=== PATIENT | female | born 1935 | race Caucasian/White ===

== ENCOUNTER → 2017-05-21 | Outpatient (REF) | payer MEDICARE ==
[2017-05-22 12:48] LABS: BASO % 0.3 % (0.0-1.0); EOS # 0.2 K/mm3 (0.0-0.50); EOS % 2.4 % (0.0-3.0); LARGE UNSTAINED CELL # 0.2 K/mm3 (0.0-0.4); LARGE UNSTAINED CELL % 2.3 % (0.0-4.0); LYMPH # 2.5 K/mm3 (1.5-4.5); LYMPH % 27.7 % (24.0-44.0); MEAN CORPUSCULAR HEMOGLOBIN 31.9 pg (27.0-33.0); MEAN CORPUSCULAR HGB CONC 34.7 g/dl (32.0-36.5); MONO # 0.6 K/mm3 (0.0-0.8); MONO % 6.4 % (0.0-5.0); NEUTROPHILS # 5.5 K/mm3 (1.8-7.7); NEUTROPHILS % 60.9 % (36.0-66.0); PLATELET COUNT, AUTOMATED 175 k/mm3 (150-450); RED CELL DISTRIBUTION WIDTH 12.3 % (11.5-14.5); WHITE BLOOD COUNT 9.1 K/mm3 (4.0-10.0)
[2017-05-22 13:22] LABS: ALBUMIN 3.6 GM/DL (3.2-5.2); ALBUMIN/GLOBULIN RATIO 1.33 (1.00-1.93); ALKALINE PHOSPHATASE 95 U/L (45-117); ALT/SGPT 16 U/L (12-78); ANION GAP 7 MEQ/L (8-16); AST/SGOT 18 U/L (15-37); BILIRUBIN,TOTAL 1.1 MG/DL (0.2-1.0); BLOOD UREA NITROGEN 10 MG/DL (7-18); CARBON DIOXIDE LEVEL 31 MEQ/L (21-32); CHLORIDE LEVEL 108 MEQ/L (98-107); CHOLESTEROL LEVEL 144 MG/DL (<200); GLOMERULAR FILTRATION RATE > 60.0 (>39); GLUCOSE, FASTING 90 MG/DL (83-110); POTASSIUM SERUM 4.4 MEQ/L (3.5-5.1); SODIUM LEVEL 146 MEQ/L (136-145); TOTAL PROTEIN 6.3 GM/DL (6.4-8.2); TRIGLYCERIDES LEVEL 87 MG/DL (<150)
== END ==
LOC: M SFHCADAM 16:21
PROVIDERS: ATTEND Physician Assistant Medical
DX: R91.1 Solitary pulmonary nodule (principal); F17.200 Nicotine dependence, unspecified, uncomplicated; J43.1 Panlobular emphysema; E55.9 Vitamin D deficiency, unspecified; I77.9 Disorder of arteries and arterioles, unspecified; Z23 Encounter for immunization; Z79.52 Long term (current) use of systemic steroids; Z79.899 Other long term (current) drug therapy
CPT/HCPCS: 80053; 80061; 82306; 84443; 85025; 90670; G0009; G0463

== ENCOUNTER → 2018-06-15 | Outpatient (REF) | payer MEDICARE ==
[2018-06-15 13:08] LABS: BASO % 0.5 % (0.0-1.0); EOS # 0.1 10^3/uL (0.0-0.50); EOS % 1.8 % (0.0-3.0); HEMATOCRIT 45.5 % (36.0-47.0); HEMOGLOBIN 14.4 g/dl (12.0-15.5); IMMATURE GRANULOCYTE % 0.4 % (0-3.0); LYMPH % 25.7 % (24.0-44.0); MEAN CORPUSCULAR HGB CONC 31.6 g/dl (32.0-36.5); MEAN CORPUSCULAR VOLUME 94.8 fl (80.0-96.0); MONO # 0.8 10^3/uL (0.0-0.8); MONO % 9.8 % (0.0-5.0); NEUTROPHILS # 4.8 10^3/uL (1.8-7.7); NEUTROPHILS % 61.8 % (36.0-66.0); PLATELET COUNT, AUTOMATED 171 10^3/uL (150-450); RED CELL DISTRIBUTION WIDTH 12.6 % (11.5-14.5); WHITE BLOOD COUNT 7.8 10^3/uL (4.0-10.0)
[2018-06-15 13:45] LABS: THYROID STIMULATING HORMONE 0.955 uIU/ML (0.358-3.740)
[2018-06-15 14:32] LABS: ALBUMIN/GLOBULIN RATIO 1.33 (1.00-1.93); ALKALINE PHOSPHATASE 105 U/L (45-117); ALT/SGPT 21 U/L (12-78); ANION GAP 6 MEQ/L (8-16); AST/SGOT 23 U/L (7-37); BILIRUBIN,TOTAL 1.2 MG/DL (0.2-1.0); BLOOD UREA NITROGEN 13 MG/DL (7-18); CALCIUM LEVEL 9.2 MG/DL (8.8-10.2); CARBON DIOXIDE LEVEL 31 MEQ/L (21-32); CHLORIDE LEVEL 107 MEQ/L (98-107); CHOLESTEROL LEVEL 156 MG/DL (<200); CHOLESTEROL RISK RATIO 1.925 (<5); CREATININE FOR GFR 0.78 MG/DL (0.55-1.30); FREE T4 1.25 NG/DL (0.76-1.46); GLOMERULAR FILTRATION RATE > 60.0 (>32); GLUCOSE, FASTING 103 MG/DL (70-100); HDL CHOLESTEROL 81 MG/DL (>40); LDL CHOLESTEROL 52 MG/DL (<100); NON-HDL-C 75 MG/DL; POTASSIUM SERUM 4.4 MEQ/L (3.5-5.1); SODIUM LEVEL 144 MEQ/L (136-145); TRIGLYCERIDES LEVEL 114 MG/DL (<150)
[2018-06-15 19:24] LABS: TOTAL 25(OH) VITAMIN D 34.7 NG/ML (30.0-100.0)
== END ==
LOC: M SFHCADAM 10:13
DX: I73.9 Peripheral vascular disease, unspecified (principal); J43.1 Panlobular emphysema; I77.9 Disorder of arteries and arterioles, unspecified; E55.9 Vitamin D deficiency, unspecified; R91.1 Solitary pulmonary nodule; F17.200 Nicotine dependence, unspecified, uncomplicated; Z23 Encounter for immunization
CPT/HCPCS: 84443

== ENCOUNTER → 2019-01-25 | Outpatient (REF) | payer MEDICARE ==
[2019-01-25 19:43] LABS: THYROID STIMULATING HORMONE 1.12 uIU/ML (0.358-3.740)
[2019-01-25 19:46] LABS: FOLATE 3.9 NG/ML
[2019-01-31 00:06] LABS: VITAMIN B1 LEVEL WHOLE BLOOD 143.5 nmol/L (66.5-200.0); VITAMIN B6,PYRIDOXAL PHOSPHATE 2.5 ug/L (2.0-32.8); VITAMIN E(ALPHA TOCOPHEROL) 7.6 mg/L (9.0-29.0); VITAMIN E(GAMMA TOCOPHEROL) 2.2 mg/L (0.5-4.9)
== END ==
LOC: M LABNEURO 13:37
PROVIDERS: ATTEND Psychiatry & Neurology Neurology
DX: E03.9 Hypothyroidism, unspecified (principal); E53.9 Vitamin B deficiency, unspecified

== ENCOUNTER → 2019-06-14 | Outpatient (REF) | payer MEDICARE ==
[2019-06-14 16:08] LABS: BASO % 0.6 % (0.0-1.0); EOS # 0.1 10^3/uL (0.0-0.5); EOS % 1.8 % (0.0-3.0); HEMATOCRIT 42.9 % (36.0-47.0); HEMOGLOBIN 13.7 g/dl (12.0-15.5); LYMPH # 2.1 10^3/uL (1.5-5.0); MEAN CORPUSCULAR HEMOGLOBIN 30.8 pg (27.0-33.0); MEAN CORPUSCULAR HGB CONC 31.9 g/dl (32.0-36.5); MEAN CORPUSCULAR VOLUME 96.4 fl (80.0-96.0); MONO # 0.6 10^3/uL (0.0-0.8); MONO % 8.8 % (0.0-5.0); NEUTROPHILS # 4.1 10^3/uL (1.5-8.5); NEUTROPHILS % 58.5 % (36.0-66.0); PLATELET COUNT, AUTOMATED 163 10^3/uL (150-450); RED BLOOD COUNT 4.45 10^6/uL (4.00-5.40); WHITE BLOOD COUNT 7.1 10^3/uL (4.0-10.0)
[2019-06-14 16:23] LABS: ALBUMIN 3.5 GM/DL (3.2-5.2); ALT/SGPT 23 U/L (12-78); BLOOD UREA NITROGEN 10 MG/DL (7-18); CALCIUM LEVEL 8.7 MG/DL (8.8-10.2); CARBON DIOXIDE LEVEL 33 MEQ/L (21-32); CHLORIDE LEVEL 104 MEQ/L (98-107); CHOLESTEROL LEVEL 148 MG/DL (<200); CHOLESTEROL RISK RATIO 1.947 (<5); FOLATE 8.1 NG/ML; GLOMERULAR FILTRATION RATE > 60.0 (>32); GLUCOSE, FASTING 117 MG/DL (70-100); HDL CHOLESTEROL 76 MG/DL (>40); LDL CHOLESTEROL 48 MG/DL (<100); NON-HDL-C 72 MG/DL; POTASSIUM SERUM 4.1 MEQ/L (3.5-5.1); SODIUM LEVEL 141 MEQ/L (136-145); TOTAL 25(OH) VITAMIN D 34.6 NG/ML (30.0-100.0); TOTAL PROTEIN 6.3 GM/DL (6.4-8.2); TRIGLYCERIDES LEVEL 118 MG/DL (<150); VITAMIN B12 LEVEL 557 PG/ML
[2019-06-14 16:27] LABS: HEMOGLOBIN A1c 6.1 %
[2019-06-14 16:32] LABS: CREATININE, URINE 89.1 MG/DL; MALB URINE SIEMENS 10.8 MG/L; MAU/CREAT RATIO 12.1 MCG/MG (0.0-30.0)
== END ==
LOC: M SFHCADAM 13:15
PROVIDERS: ATTEND Physician Assistant Medical
DX: I77.9 Disorder of arteries and arterioles, unspecified (principal); E55.9 Vitamin D deficiency, unspecified; I70.233 Atherosclerosis of native arteries of right leg with ulceration of ankle; I10 Essential (primary) hypertension; F03.90 Unspecified dementia, unspecified severity, without behavioral disturbance, psychotic disturbance, mood disturbance, and anxiety
CPT/HCPCS: 80053; 80061; 82043; 82306; 82607; 82746; 83036; 84443; 85025; 90682; G0008; G0463

== ENCOUNTER → 2020-06-11 | Outpatient (REF) | payer MEDICARE ==
[2020-06-11 12:50] LABS: BASO % 0.5 % (0.0-1.0); EOS # 0.2 10^3/uL (0.0-0.5); EOS % 2.2 % (0.0-3.0); HEMATOCRIT 45.5 % (36.0-47.0); HEMOGLOBIN 14.1 g/dl (12.0-15.5); LYMPH # 1.9 10^3/uL (1.5-5.0); LYMPH % 26.5 % (24.0-44.0); MEAN CORPUSCULAR HEMOGLOBIN 29.7 pg (27.0-33.0); MEAN CORPUSCULAR VOLUME 95.8 fl (80.0-96.0); MONO # 0.9 10^3/uL (0.0-0.8); MONO % 12.1 % (0.0-5.0); NEUTROPHILS # 4.3 10^3/uL (1.5-8.5); NEUTROPHILS % 58.4 % (36.0-66.0); PLATELET COUNT, AUTOMATED 219 10^3/uL (150-450); RED BLOOD COUNT 4.75 10^6/uL (4.00-5.40); WHITE BLOOD COUNT 7.3 10^3/uL (4.0-10.0)
[2020-06-11 13:25] LABS: ALBUMIN 3.5 GM/DL (3.2-5.2); ALT/SGPT 16 U/L (12-78); BILIRUBIN,TOTAL 0.9 MG/DL (0.2-1.0); BLOOD UREA NITROGEN 9 MG/DL (7-18); CALCIUM LEVEL 9.3 MG/DL (8.8-10.2); CARBON DIOXIDE LEVEL 31 MEQ/L (21-32); CHLORIDE LEVEL 104 MEQ/L (98-107); CHOLESTEROL LEVEL 151 MG/DL (<200); CHOLESTEROL RISK RATIO 1.935 (<5); GLOMERULAR FILTRATION RATE > 60.0 (>32); GLUCOSE, FASTING 85 MG/DL (70-100); HDL CHOLESTEROL 78 MG/DL (>40); LDL CHOLESTEROL 54 MG/DL (<100); NON-HDL-C 73 MG/DL; POTASSIUM SERUM 4.2 MEQ/L (3.5-5.1); SODIUM LEVEL 139 MEQ/L (136-145); TRIGLYCERIDES LEVEL 97 MG/DL (<150)
== END ==
LOC: M SFHCADAM 09:43
PROVIDERS: ATTEND Physician Assistant Medical
DX: R91.1 Solitary pulmonary nodule (principal); I77.9 Disorder of arteries and arterioles, unspecified; E55.9 Vitamin D deficiency, unspecified; I70.233 Atherosclerosis of native arteries of right leg with ulceration of ankle

== ENCOUNTER 2021-01-06 20:07 | Inpatient (IN) | payer MEDICARE ==
[~2021-01-06] VITALS: Ht 165.1 cm; Wt 59.1 kg
[2021-01-06] MEDS ORDERED: ATOR40TA75 PO (20:19)
[2021-01-06] MEDS ORDERED: DONE10TA90 PO (20:19)
[2021-01-06] MEDS ORDERED: ASPI81TA26 PO (20:21)
[2021-01-06 21:52] LABS: BASO % 0.4 % (0.0-1.0); EOS # 0.2 10^3/uL (0.0-0.5); EOS % 1.5 % (0.0-3.0); HEMATOCRIT 44.9 % (36.0-47.0); HEMOGLOBIN 14.3 g/dl (12.0-15.5); LYMPH % 19.5 % (24.0-44.0); MEAN CORPUSCULAR HEMOGLOBIN 30.6 pg (27.0-33.0); MEAN CORPUSCULAR HGB CONC 31.8 g/dl (32.0-36.5); MEAN CORPUSCULAR VOLUME 96.1 fl (80.0-96.0); MONO # 0.9 10^3/uL (0.0-0.8); MONO % 8.9 % (2.0-8.0); NEUTROPHILS # 7.2 10^3/uL (1.5-8.5); NEUTROPHILS % 69.4 % (36.0-66.0); PLATELET COUNT, AUTOMATED 199 10^3/uL (150-450); RED BLOOD COUNT 4.67 10^6/uL (4.00-5.40); WHITE BLOOD COUNT 10.4 10^3/uL (4.0-10.0)
[2021-01-06 22:16] LABS: BLOOD UREA NITROGEN 9 MG/DL (7-18); CALCIUM LEVEL 8.8 MG/DL (8.8-10.2); CARBON DIOXIDE LEVEL 29 MEQ/L (21-32); CHLORIDE LEVEL 107 MEQ/L (98-107); CREATININE FOR GFR 0.74 MG/DL (0.55-1.30); GLOMERULAR FILTRATION RATE > 60.0 (>32); GLUCOSE, FASTING 103 MG/DL (70-100); SODIUM LEVEL 141 MEQ/L (136-145)
[2021-01-06] MEDS ORDERED: ISOVUE-370 76% 100ML VIAL As Ordered ONE (22:22)
--- NOTE | 2021-01-06 22:30 | REPVR ---
PROCEDURE INFORMATION: Exam: XR Chest Exam date and time: 01/06/2021 9:47 PM Age: 85 years old Clinical indication: Screening exam; Additional info: Pre-admission TECHNIQUE: Imaging protocol: XR of the chest. Views: 1 view. COMPARISON: CT Chest without contrast 07/22/2016 2:00 PM FINDINGS: Tubes, catheters and devices: There are surgical clips projecting over the right axillary region. Lungs: There is chronic scarring of the lung apices, right greater than left, which was also present in the CT chest on 07/22/2016. There are emphysematous changes in both lungs, which are better visualized in the CT chest on 07/22/2016. Pleural spaces: Unremarkable. No pleural effusion. No pneumothorax. Heart/Mediastinum: Unremarkable. No cardiomegaly. Bones/joints: There are endplate spurs in the thoracic spine. There is a mild dextroscoliosis of the thoracolumbar spine. IMPRESSION: 1. No radiographic evidence for an acute cardiopulmonary process. 2. Emphysematous changes. Electronically signed by: Gurwinder Wise On 01/06/2021 22:29:55 PM
--- NOTE | 2021-01-06 23:44 | REPVR ---
PROCEDURE INFORMATION: Exam: CT Abdomen And Pelvis With Contrast Exam date and time: 01/06/2021 10:37 PM Age: 85 years old Clinical indication: Lower gastrointestinal bleed. TECHNIQUE: Imaging protocol: Computed tomography of the abdomen and pelvis with contrast. Radiation optimization: All CT scans at this facility use at least one of these dose optimization techniques: automated exposure control; mA and/or kV adjustment per patient size (includes targeted exams where dose is matched to clinical indication); or iterative reconstruction. Contrast material: ISOVUE 370; Contrast volume: 100 ml; Contrast route: INTRAVENOUS (IV); COMPARISON: CT Chest without contrast 07/22/2016 2:00:46 PM FINDINGS: Lungs: There are centrilobular emphysematous changes in the lung bases. The lungs were not fully imaged. Heart: No cardiomegaly or pericardial effusion is noted. There are coronary artery calcifications. Liver: There are hepatic cysts measuring up to 10 mm, which are stable compared to the prior CT chest on 07/22/2016 and for which further follow-up is not necessary. The contour of the liver is smooth. No hepatomegaly. Gallbladder and bile ducts: There is cholelithiasis. There is thickening of the wall of the fundus and proximal to mid body of the gallbladder. No pericholecystic fluid or pericholecystic inflammatory changes are noted. The common bile duct measures up to 8 mm in diameter. No calcified stones are seen in the common bile duct. No dilation of the intrahepatic biliary ducts is noted. Pancreas: Unremarkable. No dilation of the main pancreatic duct is noted. Spleen: Normal. No splenomegaly is noted. Adrenal glands: There is nodular thickening of the adrenal glands that is stable compared to the prior CT chest on 07/22/2016. Kidneys and ureters: The kidneys are normal in appearance. No renal lesion is noted. No stones are noted in the kidneys or ureters. There is no hydronephrosis or hydroureter. Stomach and bowel: There is thickening of the wall of the stomach, which may be secondary to its decompressed state versus gastritis. The small bowel is unremarkable. There is high attenuation fluid in the lumen of the cecum descending colon, sigmoid colon, and rectum, which may represent acute hemorrhage or ingested material. There is thickening of the wall of the ascending colon and transverse colon, which is compatible with a colitis. There is colonic diverticulosis without evidence for diverticulitis. There is lipomatosis of the ileocecal valve. Appendix: There is intraluminal high density within the appendix, which may represent high density ingested material or appendicoliths. The appendix is not dilated and there is no inflammatory fat stranding or fluid around the appendix to indicate appendicitis. Intraperitoneal space: No free air. No ascites. No abscess. Retroperitoneal space: No fluid collection. No mass. Vasculature: There is a bypass graft extending along the right lateral aspect of the chest wall and abdominal and pelvic wall into the right common femoral artery, which may represent a right axillofemoral bypass graft that was not fully imaged. The imaged portion of the graft is patent. There is dilation of the distal portion of the graft at the level of the pelvis, which measures 2.6 cm in diameter with mural thrombus. There is an occluded right common iliac artery and right external iliac artery bypass graft. There is severe stenosis of the [place] right common iliac artery secondary to extensive calcified atherosclerotic plaque. There is an occlusion of the left common iliac artery secondary to extensive calcified atherosclerotic plaque. There is moderate stenosis of the left external iliac artery secondary to calcified atherosclerotic plaque. There is severe stenosis of the bilateral internal iliac arteries secondary to extensive calcified atherosclerotic plaque. There is mild stenosis of the left common femoral artery secondary to calcified atherosclerotic plaque. No abdominal aortic aneurysm or aortic occlusion is noted. There is extensive atherosclerotic plaque in the abdominal aorta. There is an occlusion of the proximal portion of the inferior mesenteric artery, with reconstitution of flow distally via a collateral branch of the superior mesenteric artery. No occlusion or stenosis of the celiac artery or superior mesenteric artery is noted. There is severe stenosis of the origin of the single left main renal artery. No significant stenosis or occlusion the single right main renal artery is noted. Lymph nodes: There is a 3 cm right hilar mass or lymphadenopathy that has developed since the prior CT chest on 07/22/2016 (image 1 of the axial series 201). No enlarged lymph nodes. Urinary bladder: The partially distended urinary bladder is unremarkable. No stones or masses are seen in the bladder. Reproductive: The uterus is anterverted and unremarkable. The ovaries are unremarkable. Bones/joints: There is no fracture or dislocation. There are degenerative changes in the lumbar spine and a mild dextroscoliosis of the lumbar spine. Incidental note is made of a small bone island in the right iliac bone. Soft tissues: Unremarkable. No hernia. IMPRESSION: 1. 3 cm right hilar mass or lymphadenopathy, which has developed since the prior CT chest on 07/22/2016. 2. High attenuation fluid in the lumen of the cecum, descending colon, sigmoid colon, and rectum, which may represent acute hemorrhage or ingested material. 3. Colitis involving the ascending colon and transverse colon. 4. Colonic diverticulosis without evidence for diverticulitis. 5. Thickening of the wall of the stomach, which may be secondary to its decompressed state versus gastritis. 6. Cholelithiasis. 7. 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 Electronically signed by: Gurwinder Wise On 01/06/2021 23:43:58 PM
--- NOTE | 2021-01-07 00:02 | HPEPDOC ---
[facility] Medical History & Physical Date of Admission January 06, 2021 Date of Service: January 06, 2021 History and Physical CHIEF COMPLAINT: Diarrhea with blood in stool HISTORY OF PRESENT ILLNESS: 85-year-old female comes emergency department with her at bedside complaining of diarrhea with some blood which started only today. Tells me she's had diarrhea about 5 or 6 times today and she has noticed a few times she sees blood when she wipes and sometimes in the bowl she describes as a small amount a few drops but she has not had this amount of diarrhea or blood in her stools before. This concerned her and prompted her to come to the emergency department. does not have diarrhea symptoms. She denies any fevers or chills denies any chest pain or trouble breathing denies abdominal pain. She tells me the diar maranda has slowed down and when she hasn't gone in the past several hours. She doesn't feel any lightheadedness or dizziness. PAST MEDICAL/SURGICAL HISTORY: Peripheral artery disease, complete occlusion of the right internal carotid Pulmonary nodule following up with her PCP for this. History of squamous cell carcinoma of left face Mild dementia according to her Varicose vein stripping 1970 Tubal ligation 1970 Skin cancer removal from face with skin graft 1989 Cataract surgery Right axillofemoral bypass 2016 SOCIAL HISTORY: Denies alcohol use Denies tobacco use currently but she is a former smoker enies illicit drug use FAMILY HISTORY: Reviewed and none contributory to this admission ALLERGIES: Please see below. REVIEW OF SYSTEMS: 10 point review of systems complete all negative otherwise stated in HPI HOME MEDICATIONS: Please see below. PHYSICAL EXAMINATION: Constitutional: Awake and alert, in no apparent distress ENT: Sclera are clear. Mucosa is moist. Respiratory: Lungs CTA bilaterally. No respiratory distress. Cardiovascular: Regular rate and rhythm Gastrointestinal: Abdomen is soft, non distended, non tender to light or deep palpation no rebound tenderness, BS present. Musculoskeletal: No lower extremity edema. Neurologic: No focal neurological deficit. Mental Status: A&O x3, normal affect Skin: No visible rashes LABORATORY DATA: See below. IMAGING: See chart MICROBIOLOGY: Please see below. ASSESSMENT/PLAN 85-year-old female presents with a one-day history of diarrhea and bright red blood per rectum. Etiology unknown at this time but patient will be admitted for further workup and management. # Diarrhea associated with BRBPR: unkown etiology, possibly colitis vs gastroenteritis. Fu GI panel. Trend HH. Hgb 14 on admit. IV protonix. IV ciprofloxacin for now. Consider Inpatient vs outpatient colonoscopy/GI eval. IVF. # Elevated blood pressure without diagnosis of hypertension: SBP 180 on admit. Started on lisinopril. Monitor and titrate BP. # Lung nodule: Follow up on CT chest ordered from ED not yet read. She's been following up with her PCP for this. # PAD: continue home ASA/statin. ASA given how high her hgb is and how small her lower GI bleeding is, should HH downtrend ASA can be held. # Dementia: continue dozepezil # DVT prophylaxis: SCDs/TEDs only due to GI bleed A [facility] Hospitalist Vital Signs Vital Signs Date Time Temp Pulse Resp B/P (MAP) Pulse Ox O2 Delivery O2 Flow Rate FiO2 01/06/21 21:20 01/06/21 20:08 98.2 100 20 100 Room Air Laboratory Data Labs 24H Laboratory Tests 2 01/06/21 21:42: Immature Granulocyte % (Auto) 0.3, Neutrophils (%) (Auto) 69.4H, Lymphocytes (%) (Auto) 19.5L, Monocytes (%) (Auto) 8.9H, Eosinophils (%) (Auto) 1.5, Basophils (%) (Auto) 0.4, Neutrophils # (Auto) 7.2, Lymphocytes # (Auto) 2.0, Monocytes # (Auto) 0.9H, Eosinophils # (Auto) 0.2, Basophils # (Auto) 0.0, Nucleated Red Blood Cells % (auto) 0.0, Anion Gap 5L, Glomerular Filtration Rate > 60.0, Calci um Level 8.8 CBC/BMP Laboratory Tests 01/06/21 21:42 Home Medications Scheduled Aspirin (Aspirin EC) 81 Mg Tablet.dr, 81 MG PO DAILY Atorvastatin Calcium (Atorvastatin Calcium) 40 Mg Tablet, 40 MG PO DAILY Donepezil HCl (Donepezil HCl) 10 Mg Tablet, 10 MG PO DAILY Allergies Coded Allergies: bacitracin (Verified Allergy, Unknown, 01/06/21) neomycin (Verified Allergy, Unknown, 01/06/21) polymyxin B (Verified Allergy, Unknown, 01/06/21) A-FIB/CHADSVASC A-FIB History Current/History of A-Fib/PAF?: No YOUSEF,UZIEL Estrada MD January 07, 2021 00:02
[2021-01-07] MEDS ORDERED: NS 1,000 ML IV SCH (00:10)
[2021-01-07] MEDS ORDERED: ACETAMINOPHEN TAB 650MG DOSE (2X325MG) PO PRN (00:50)
[2021-01-07 00:56] LABS: RSV AMPLIFICATION NEGATIVE (NEGATIVE)
--- NOTE | 2021-01-07 01:14 | REPVR ---
PROCEDURE INFORMATION: Exam: CT Chest Without Contrast; Diagnostic Exam date and time: 01/07/2021 12:18 AM Age: 85 years old Clinical indication: Abnormal findings; Lung mass or nodule; Not specified; Additional info: New right hilar mass TECHNIQUE: Imaging protocol: Diagnostic computed tomography of the chest without contrast. 3D rendering (Not supervised by radiologist): MIP and/or 3D reconstructed images were created by the technologist. Radiation optimization: All CT scans at this facility use at least one of these dose optimization techniques: automated exposure control; mA and/or kV adjustment per patient size (includes targeted exams where dose is matched to clinical indication); or iterative reconstruction. COMPARISON: CT Chest without contrast 07/22/2016 2:00 PM FINDINGS: Lungs: Spiculated mass in the right upper lobe measuring 3.4 x 2.0 x 4.1 cm. Advanced emphysema and hyperinflation. No other masses are seen. No airspace consolidation. There is nonobstructive stenosis of the bronchus intermedius. Airways are otherwise clear. Pleural spaces: Unremarkable. No pneumothorax. No pleural effusion. Heart: Normal heart size. Three-vessel coronary artery atherosclerotic disease. Aorta: Unremarkable. No aortic aneurysm. Lymph nodes: Multiple enlarged right hilar lymph nodes measuring up to 1.9 cm. Additional smaller mediastinal lymph nodes measuring up to 1.4 cm. Bones/joints: Skeletal degenerative changes are noted. Soft tissues: There is a vascular stent in the right chest wall. IMPRESSION: 1. Large spiculated right upper lobe mass with mediastinal and hilar adenopathy. 2. Advanced emphysema. 3. Nonobstructive stenosis of the bronchus intermedius. 4. Coronary artery disease. Electronically signed by: Finn Flowers On 01/07/2021 01:14:10 AM
[2021-01-07 01:47] VITALS: BP 128/75
[2021-01-07] MEDS: NS 1,000 ML IV SCH ×2 (02:10→13:45)
[2021-01-07] MEDS: DONEPEZIL 5 MG TAB PO SCH ×2 (02:10→20:03)
[2021-01-07] MEDS: CIPROFLOXACIN 400 MG in IV 1 EA IV SCH ×2 (02:11→13:48)
[2021-01-07] MEDS: PANTOPRAZOLE 40MG VIAL (C9113 PER 1) IV SCH (02:11)
[2021-01-07 06:00] VITALS: BP 121/72
[2021-01-07 06:40] LABS: HEMATOCRIT 38.2 % (36.0-47.0); HEMOGLOBIN 12.1 g/dl (12.0-15.5); MEAN CORPUSCULAR HEMOGLOBIN 30.9 pg (27.0-33.0); MEAN CORPUSCULAR HGB CONC 31.7 g/dl (32.0-36.5); MEAN CORPUSCULAR VOLUME 97.4 fl (80.0-96.0); PLATELET COUNT, AUTOMATED 164 10^3/uL (150-450); RED BLOOD COUNT 3.92 10^6/uL (4.00-5.40); WHITE BLOOD COUNT 7.4 10^3/uL (4.0-10.0)
[2021-01-07 07:02] LABS: ALBUMIN 2.7 GM/DL (3.2-5.2); ALT/SGPT 10 U/L (12-78); BILIRUBIN,TOTAL 0.9 MG/DL (0.2-1.0); BLOOD UREA NITROGEN 8 MG/DL (7-18); CALCIUM LEVEL 8.3 MG/DL (8.8-10.2); CARBON DIOXIDE LEVEL 28 MEQ/L (21-32); CHLORIDE LEVEL 109 MEQ/L (98-107); CREATININE FOR GFR 0.56 MG/DL (0.55-1.30); GLOMERULAR FILTRATION RATE > 60.0 (>32); GLUCOSE, FASTING 92 MG/DL (70-100); SODIUM LEVEL 142 MEQ/L (136-145); TOTAL PROTEIN 5.4 GM/DL (6.4-8.2)
[2021-01-07] MEDS ORDERED: ASPIRIN 81MG ENTERIC TABLET PO SCH (09:00)
[2021-01-07] MEDS: ATORVASTATIN 20 MG TAB PO SCH (10:17)
[2021-01-07 12:34] LABS: HEMATOCRIT 41.5 % (36.0-47.0); HEMOGLOBIN 13.2 g/dl (12.0-15.5)
[2021-01-07 14:00] VITALS: BP 126/43
--- NOTE | 2021-01-07 16:49 | IPNPDOC ---
Text Note Date of Service The patient was seen on 01/07/21. NOTE S Per patient, she continued to have some episodes of passing bloody stool o vernight after admission. However, she was unable to recall how many episodes she has had overnight but reported seeing stool switch back and forth in color between dark and bright red. Patient reported that she has never had colonoscopy before and has been refusing to have the procedure done. Her Hgb dropped from 14.3 to 12.1 overnight. She remained asymptomatic and denied fever, chills, CP, SOB, N/V, hematemesis, abd pain, dizziness, hematuria and other urinary symptoms. O VITAL SIGNS: See below GENERAL APPEARANCE: Revealed 85 y/o F laying supine with HOB slightly elevated, appeared as stated age, alert & oriented x3, in no acute distress. HEENT Exam: Normocephalic and atraumatic, PERRL, pale conjunctiva & lids, without sclera icteric, mucous membr. moist/pink, pharynx normal, nares patent. NECK: Supple without lymphadenopathy. R sided carotid bruit noted. LUNGS: Clear to auscultation bilaterally with full breath sounds without rales, wheezing, and crackles. Healed scar noted on R chest. CARDIOVASCULAR: Regular rate and rhythm, normal S1 & S2 with 3/6 systolic murmur best heard at L 2nd ICS without gallops or rubs ABDOMEN: Soft, non-tender, non-distended with normal bowel sounds. No masses or ecchymosis or hepatosplenomegaly. R axillofemoral bypass graft noted on abd. EXTREMITIES: 2+ pulses in all extremities. No edema, tenderness SKIN: Normal turgor and temperature. No rash, lesion NEUROLOGICAL: Normal gait speech with no signs of gross focal neurological deficit. PSYCHIATRIC: Normal mood and affect ASSESSMENT/PLAN Patient is a 85-year-old female with hx of HFpEF (last normal echo 07/2017 per PCP records with unclear LVEF, LVEF 65% with grade 1 diastolic dysfunction on 07/05/2014), PAD with complete occlusion of R internal carotid (s/p R axillofemoral bypass graft in 2016), pulmonary nodule (first found on CT chest 06/19/2014 with patient refusal of repeat surveillance CT for the past 3 years), SCC of L face (s/p excision and skin graft in 1989) and mild dementia, presenting to the ED on 01/06 evening c/o 5-6 episodes of bloody diarrhea that started during the day. CT abd/pelvis on 01/06 suggestive of colitis involving ascending and transverse colon with collection of high attenuation fluid in lumen of cecum, descending and sigmoid colon and rectum suggestive of acute hemorrhage. Patient was subsequently admitted for further workup and management of bloody diarrhea. Her Hgb dropped from 14.3 to 12.1 overnight. However, patient remained asymptomatic and afebrile. GI panel returned negative. Will hold ASA and continue treatment with ciprofloxacin. Patient's pulmonary mass which was found in 2013 was again demonstrated on imaging in this visit. # Diarrhea associated with BRBPR - Likely 2/2 colitis - CT abd/pelvis showed colitis involving the ascending colon and transverse colon, and high attenuation fluid in the lumen of the cecum, descending colon, sigmoid colon, and rectum, which may represent acute hemorrhage. - GI panel negative. - Hgb dropped from 14.3 to 12.1 overnight. Hold home ASA - Inpatient colonoscopy not indicated at this time due to acute inflammation, will need outpatient colonoscopy - Cont cipro and protonix. # Elevated blood pressure without diagnosis of hypertension, resolved - SBP 180 on admit. - Resolved spontaneously after admission - Cont to monitor # Lung mass - Pulmonary mass was found on CT chest on 06/19/2014 - Repeat CT in 07/2015 showed 1mm change in size of nodule - Repeat CT in 07/2016 suggested nodule appeared more fibrotic - Patient has been refusing surveillance chest CT for the past few years - Pulmonary nodule demonstrated again on chest CT during this admission, showing large spiculated right upper lobe mass measuring 3.4 x 2.0 x 4.1 cm with mediastinal and hilar adenopathy. - Concerning for malignancy given size and spiculated appearance, will need outpatient follow up # PAD - continue statin. ASA held due to dropping Hgb. # Dementia - continue dozepezil # DVT prophylaxis - Cont SCDs/TEDs only due to GI bleed Disposition: Consider discharge when hemodynamically stable VS,Eulaliobone, I+O VS, Eulaliobone, I+O Laboratory Tests 01/06/21 21:42 01/07/21 06:04 01/07/21 11:59 Vital Signs Date Time Temp Pulse Resp B/P (MAP) Pulse Ox O2 Delivery O2 Flow Rate FiO2 01/07/21 14:00 98.0 86 19 126/43 (70) 95 Room Air I&O- Last 24 Hours up to 6 AM 01/07/21 06:00 Intake Total 490 ml Balance 490 ml GME ATTESTATION GME ATTESTATION My faculty preceptor for this patient encounter was physically present during the encounter and was fully available. All aspects of the patient interview, examination, medical decision making process, and medical care plan development were reviewed and approved by the faculty preceptor. The faculty preceptor is aware and concurs with the plan as stated in the body of this note and will attest to such by his/her cosignature. VANDANA SIDHU OMS-3 January 07, 2021 16:49
[2021-01-07 18:21] LABS: HEMOGLOBIN 11.5 g/dl (12.0-15.5)
--- NOTE | 2021-01-07 20:05 | ECGEPIP ---
[facility] - ED Test Date: 2021-01-06 Pat Name: KRIS SCHMIDT Department: Room: [place] [address] Gender: Female [employer] Supervisor: WAYNE : 1935 Requested By: Elkin Woodruff Order Number: [id number] Reading MD: Jeannette Dee Measurements Intervals Hardy Rate: 87 P: 77 MD: 158 QRS: 114 QRSD: 126 T: 22 QT: 372 QTc: 447 Interpretive Statements Sinus rhythm with premature atrial complexes with aberrant conduction Right bundle branch block No prior Electronically Signed on 01-07-2021 20:05:22 EDT by Jeannette Dee
[2021-01-07 22:00] VITALS: BP 124/43
[2021-01-08 00:09] LABS: HEMATOCRIT 36.9 % (36.0-47.0); HEMOGLOBIN 11.6 g/dl (12.0-15.5)
[2021-01-08] MEDS: PANTOPRAZOLE 40MG VIAL (C9113 PER 1) IV SCH (02:19)
[2021-01-08] MEDS: CIPROFLOXACIN 400 MG in IV 1 EA IV SCH (02:19)
[2021-01-08 06:00] VITALS: BP 120/61
[2021-01-08 06:34] LABS: HEMATOCRIT 37.7 % (36.0-47.0); HEMOGLOBIN 11.8 g/dl (12.0-15.5); MEAN CORPUSCULAR HEMOGLOBIN 30.4 pg (27.0-33.0); MEAN CORPUSCULAR HGB CONC 31.3 g/dl (32.0-36.5); MEAN CORPUSCULAR VOLUME 97.2 fl (80.0-96.0); PLATELET COUNT, AUTOMATED 163 10^3/uL (150-450); RED BLOOD COUNT 3.88 10^6/uL (4.00-5.40); WHITE BLOOD COUNT 6.8 10^3/uL (4.0-10.0)
[2021-01-08 07:07] LABS: ALBUMIN 2.9 GM/DL (3.2-5.2); ALT/SGPT 12 U/L (12-78); BILIRUBIN,TOTAL 0.9 MG/DL (0.2-1.0); BLOOD UREA NITROGEN 6 MG/DL (7-18); CALCIUM LEVEL 8.5 MG/DL (8.8-10.2); CARBON DIOXIDE LEVEL 27 MEQ/L (21-32); CHLORIDE LEVEL 110 MEQ/L (98-107); CREATININE FOR GFR 0.54 MG/DL (0.55-1.30); GLOMERULAR FILTRATION RATE > 60.0 (>32); GLUCOSE, FASTING 96 MG/DL (70-100); POTASSIUM SERUM 3.7 MEQ/L (3.5-5.1); SODIUM LEVEL 143 MEQ/L (136-145); TOTAL PROTEIN 5.4 GM/DL (6.4-8.2)
[2021-01-08] MEDS: ATORVASTATIN 20 MG TAB PO SCH (09:26)
[2021-01-08] MEDS ORDERED: OMEP40CA97 PO (12:54)
[2021-01-08 14:00] VITALS: BP 147/60
--- NOTE | 2021-01-08 18:47 | DS.PDOC ---
Discharge Summary General Date of Admission January 07, 2021 at 00:00 Date of Discharge 01/08/21 Discharge Summary PROCEDURES PERFORMED DURING STAY: [None]. ADMITTING DIAGNOSES: Diarrhea associated with BRBPR Elevated blood pressure without diagnosis of hypertension, resolved Lung mass PAD Dementia DISCHARGE DIAGNOSES: Diarrhea associated with BRBPR Elevated blood pressure without diagnosis of hypertension, resolved Lung mass PAD Dementia COMPLICATIONS/CHIEF COMPLAINT: Colitis,Hilar Mass, Lgi Bleed. 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 CT abd/pelvis on 01/06 suggestive of colitis involving ascending and transverse colon with collection of high attenuation fluid in lumen of cecum, descending and sigmoid colon and rectum suggestive of acute hemorrhage. Patient was subsequently admitted for further workup and management of bloody diarrhea. Her Hgb dropped from 14.3 to 12.1 overnight. However, patient remained asymptomatic and afebrile. GI panel returned negative. Will hold ASA and continue treatment with ciprofloxacin. Patient's pulmonary mass which was found in 2013 was again demonstrated on imaging in this visit. HOSPITAL COURSE: During the hospital stay following issues addressed # Diarrhea associated with BRBPR - Likely 2/2 colitis - CT abd/pelvis showed colitis involving the ascending colon and transverse colon, and high attenuation fluid in the lumen of the cecum, descending colon, sigmoid colon, and rectum, which may represent acute hemorrhage. - GI panel negative. - Hgb stable -Follow-up with GI team in the outpatient settings Resolved today # Elevated blood pressure without diagnosis of hypertension, resolved - SBP 180 on admit. - Resolved spontaneously after admission - Cont to monitor # Lung mass - Pulmonary mass was found on CT chest on 06/19/2014 - Repeat CT in 07/2015 showed 1mm change in size of nodule - Repeat CT in 07/2016 suggested nodule appeared more fibrotic - Patient has been refusing surveillance chest CT for the past few years - Pulmonary nodule demonstrated again on chest CT during this admission, showing large spiculated right upper lobe mass measuring 3.4 x 2.0 x 4.1 cm with mediastinal and hilar adenopathy. - Concerning for malignancy given size and spiculated appearance, will need outpatient follow up with PCP DISCHARGE MEDICATIONS: Please see below. ALLERGIES: Please see below. PHYSICAL EXAMINATION ON DISCHARGE: GENERAL APPEARANCE: NAD HEENT: no scleral icterus, no JVD, EOMI CARDIOVASCULAR: S1S2 LUNGS: CTA ABDOMEN: soft & not tender w palpitation MUSCULOSKELETAL: no cyanosis, no swelling INTEGUMENT: no generalized pallor NEUROLOGICAL: cranial nerve function from 2-12 intact intact, follows commands, speech not dysarthric LABORATORY DATA: Please see below. IMAGING: PROCEDURE INFORMATION: Exam: CT Abdomen And Pelvis With Contrast Exam date and time: 01/06/2021 10:37 PM Age: 85 years old Clinical indication: Lower gastrointestinal bleed. TECHNIQUE: Imaging protocol: Computed tomography of the abdomen and pelvis with contrast. Radiation optimization: All CT scans at this facility use at least one of these dose optimization techniques: automated exposure control; mA and/or kV adjustment per patient size (includes targeted exams where dose is matched to clinical indication); or iterative reconstruction. Contrast material: ISOVUE 370; Contrast volume: 100 ml; Contrast route: INTRAVENOUS (IV); COMPARISON: CT Chest without contrast 07/22/2016 2:00:46 PM FINDINGS: Lungs: There are centrilobular emphysematous changes in the lung bases. The lungs were not fully imaged. Heart: No cardiomegaly or pericardial effusion is noted. There are coronary artery calcifications. Liver: There are hepatic cysts measuring up to 10 mm, which are stable compared to the prior CT chest on 07/22/2016 and for which further follow-up is not necessary. The contour of the liver is smooth. No hepatomegaly. Gallbladder and bile ducts: There is cholelithiasis. There is thickening of the wall of the fundus and proximal to mid body of the gallbladder. No pericholecystic fluid or pericholecystic inflammatory changes are noted. The common bile duct measures up to 8 mm in diameter. No calcified stones are seen in the common bile duct. No dilation of the intrahepatic biliary ducts is noted. Pancreas: Unremarkable. No dilation of the main pancreatic duct is noted. Spleen: Normal. No splenomegaly is noted. Adrenal glands: There is nodular thickening of the adrenal glands that is stable compared to the prior CT chest on 07/22/2016. Kidneys and ureters: The kidneys are normal in appearance. No renal lesion is noted. No stones are noted in the kidneys or ureters. There is no hydronephrosis or hydroureter. Stomach and bowel: There is thickening of the wall of the stomach, which may be secondary to its decompressed state versus gastritis. The small bowel is unremarkable. There is high attenuation fluid in the lumen of the cecum descending colon, sigmoid colon, and rectum, which may represent acute hemorrhage or ingested material. There is thickening of the wall of the ascending colon and transverse colon, which is compatible with a colitis. There is colonic diverticulosis without evidence for diverticulitis. There is lipomatosis of the ileocecal valve. Appendix: There is intraluminal high density within the appendix, which may represent high density ingested material or appendicoliths. The appendix is not dilated and there is no inflammatory fat stranding or fluid around the appendix to indicate appendicitis. Intraperitoneal space: No free air. No ascites. No abscess. Retroperitoneal space: No fluid collection. No mass. Vasculature: There is a bypass graft extending along the right lateral aspect of the chest wall and abdominal and pelvic wall into the right common femoral artery, which may represent a right axillofemoral bypass graft that was not fully imaged. The imaged portion of the graft is patent. There is dilation of the distal portion of the graft at the level of the pelvis, which measures 2.6 cm in diameter with mural thrombus. There is an occluded right common iliac artery and right external iliac artery bypass graft. There is severe stenosis of the burns paiute right common iliac artery secondary to extensive calcified atherosclerotic plaque. There is an occlusion of the left common iliac artery secondary to extensive calcified atherosclerotic plaque. There is moderate stenosis of the left external iliac artery secondary to calcified atherosclerotic plaque. There is severe stenosis of the bilateral internal iliac arteries secondary to extensive calcified atherosclerotic plaque. There is mild stenosis of the left common femoral artery secondary to calcified atherosclerotic plaque. No abdominal aortic aneurysm or aortic occlusion is noted. There is extensive atherosclerotic plaque in the abdominal aorta. There is an occlusion of the proximal portion of the inferior mesenteric artery, with reconstitution of flow distally via a collateral branch of the superior mesenteric artery. No occlusion or stenosis of the celiac artery or superior mesenteric artery is noted. There is severe stenosis of the origin of the single left main renal artery. No significant stenosis or occlusion the single right main renal artery is noted. Lymph nodes: There is a 3 cm right hilar mass or lymphadenopathy that has developed since the prior CT chest on 07/22/2016 (image 1 of the axial series 201). No enlarged lymph nodes. Urinary bladder: The partially distended urinary bladder is unremarkable. No stones or masses are seen in the bladder. Reproductive: The uterus is anterverted and unremarkable. The ovaries are unremarkable. Bones/joints: There is no fracture or dislocation. There are degenerative changes in the lumbar spine and a mild dextroscoliosis of the lumbar spine. Incidental note is made of a small bone island in the right iliac bone. Soft tissues: Unremarkable. No hernia. IMPRESSION: 1. 3 cm right hilar mass or lymphadenopathy, which has developed since the prior CT chest on 07/22/2016. 2. High attenuation fluid in the lumen of the cecum, descending colon, sigmoid colon, and rectum, which may represent acute hemorrhage or ingested material. 3. Colitis involving the ascending colon and transverse colon. 4. Colonic diverticulosis without evidence for diverticulitis. 5. Thickening of the wall of the stomach, which may be secondary to its decompressed state versus gastritis. 6. Cholelithiasis. 7. 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 PROGNOSIS: Guarded ACTIVITY: [As tolerated]. DIET: Cardiac DISPOSITION: 01 Home, Self-Care. ITEMS TO FOLLOWUP ON ON OUTPATIENT: Follow-up with PCP, GI team DISCHARGE CONDITION: [Stable]. TIME SPENT ON DISCHARGE: 40minutes. Vital Signs/I&Os Vital Signs Date Time Temp Pulse Resp B/P (MAP) Pulse Ox O2 Delivery O2 Flow Rate FiO2 01/08/21 14:00 98.1 78 20 147/60 (89) 94 Room Air I&O- Last 24 Hours up to 6 AM 01/08/21 06:00 Intake Total 2195 ml Output Total 900 ml Balance 1295 ml Laboratory Data Labs 24H Laboratory Tests 2 01/08/21 05:47: Nucleated Red Blood Cells % (auto) 0.0, Anion Gap 6L, Glomerular Filtration Rate > 60.0, Calcium Level 8.5L, Total Bilirubin 0.9, Aspartate Amino Transf (AST/SGOT) 23, Alanine Aminotransferase (ALT/SGPT) 12, Alkaline Phosphatase 85, Total Protein 5.4L, Albumin 2.9L, Albumin/Globulin Ratio 1.2 CBC/BMP Laboratory Tests 01/07/21 23:58 01/08/21 05:47 Microbiology Microbiology 01/07/21 Gastrointestinal Tract Panel (PCR) - Final, Complete Discharge Medications Scheduled Aspirin (Aspirin EC) 81 Mg Tablet.dr, 81 MG PO DAILY, (Reported) Atorvastatin Calcium (Atorvastatin Calcium) 40 Mg Tablet, 40 MG PO DAILY, (Reported) Donepezil HCl (Donepezil HCl) 10 Mg Tablet, 10 MG PO DAILY, (Reported) Omeprazole (Omeprazole) 40 Mg Capsule.dr, 1 CAP PO DAILY Allergies Coded Allergies: bacitracin (Verified Allergy, Unknown, 01/06/21) neomycin (Verified Allergy, Unknown, 01/06/21) polymyxin B (Verified Allergy, Unknown, 01/06/21) THAI BROOKS DO January 08, 2021 18:47
== END 2021-01-08 16:16 | disposition home or self-care (01) | DRG 379 ==
LOC: M ED 20:07 → M ED INP 01-07 → ENRESERVDT 01-07 01:03 → ENRESERVTM 01-07 01:03 → M MSPAV 01-07 01:47
PROVIDERS: ADMIT Family Medicine; ATTEND Internal Medicine
DX: K62.5 Hemorrhage of anus and rectum (principal); K52.9 Noninfective gastroenteritis and colitis, unspecified; F03.90 Unspecified dementia, unspecified severity, without behavioral disturbance, psychotic disturbance, mood disturbance, and anxiety; R91.8 Other nonspecific abnormal finding of lung field; R03.0 Elevated blood-pressure reading, without diagnosis of hypertension; Z79.82 Long term (current) use of aspirin; Z79.899 Other long term (current) drug therapy; Z88.8 Allergy status to other drugs, medicaments and biological substances

== ENCOUNTER → 2021-01-17 | Outpatient (REF) | payer MEDICARE ==
[~2021-01-17] MED LIST: ASPI81TA26 PO; ATOR40TA75 PO; DONE10TA90 PO; DOXY1CAP62 PO; OMEP40CA4 PO
[2021-01-17 17:51] LABS: HEMATOCRIT 41.4 % (36.0-47.0); HEMOGLOBIN 12.9 g/dl (12.0-15.5); MEAN CORPUSCULAR HEMOGLOBIN 30.7 pg (27.0-33.0); MEAN CORPUSCULAR HGB CONC 31.2 g/dl (32.0-36.5); MEAN CORPUSCULAR VOLUME 98.6 fl (80.0-96.0); PLATELET COUNT, AUTOMATED 207 10^3/uL (150-450); WHITE BLOOD COUNT 7.7 10^3/uL (4.0-10.0)
== END ==
LOC: M SFHCADAM 12:05
PROVIDERS: ATTEND Physician Assistant Medical
DX: K92.2 Gastrointestinal hemorrhage, unspecified (principal); K52.9 Noninfective gastroenteritis and colitis, unspecified

== ENCOUNTER 2021-02-04 11:58 | Emergency (ER) | payer MEDICARE ==
[~2021-02-04] VITALS: Ht 165.1 cm; Wt 57.9 kg
[~2021-02-04 11:58] MED LIST changes: -DOXY1CAP62 PO; -OMEP40CA4 PO; +OMEP40CA97 PO
[2021-02-04 17:34] LABS: BASO % 0.5 % (0.0-1.0); EOS # 0.2 10^3/uL (0.0-0.5); EOS % 2.9 % (0.0-3.0); HEMATOCRIT 42.4 % (36.0-47.0); HEMOGLOBIN 13.3 g/dl (12.0-15.5); LYMPH # 1.8 10^3/uL (1.5-5.0); LYMPH % 26.6 % (24.0-44.0); MEAN CORPUSCULAR HEMOGLOBIN 30.4 pg (27.0-33.0); MEAN CORPUSCULAR HGB CONC 31.4 g/dl (32.0-36.5); MONO # 0.7 10^3/uL (0.0-0.8); MONO % 11.2 % (2.0-8.0); NEUTROPHILS # 3.9 10^3/uL (1.5-8.5); NEUTROPHILS % 58.3 % (36.0-66.0); PLATELET COUNT, AUTOMATED 169 10^3/uL (150-450); RED BLOOD COUNT 4.37 10^6/uL (4.00-5.40); WHITE BLOOD COUNT 6.6 10^3/uL (4.0-10.0)
[2021-02-04 17:47] LABS: BLOOD UREA NITROGEN 11 MG/DL (7-18); C REACTIVE PROTEIN QUANTITATIV 1.43 MG/DL (0.00-0.30); CALCIUM LEVEL 9.4 MG/DL (8.8-10.2); CARBON DIOXIDE LEVEL 32 MEQ/L (21-32); CHLORIDE LEVEL 103 MEQ/L (98-107); CREATININE FOR GFR 0.56 MG/DL (0.55-1.30); GLOMERULAR FILTRATION RATE > 60.0 (>32); GLUCOSE, FASTING 101 MG/DL (70-100); SODIUM LEVEL 140 MEQ/L (136-145)
[2021-02-04 18:12] LABS: ERYTHROCYTE SEDIMENTATION RATE 14 mm/hr (0-30)
--- NOTE | 2021-02-04 20:08 | REP ---
INDICATION: pain/swelling. COMPARISON: None. TECHNIQUE: Multiple ultrasonographic images of the deep venous structures of the right lower extremity were obtained from the inguinal ligament to the ankle. Venous compression techniques, color doppler imaging, and augmentation techniques were also obtained where appropriate. As per the ACR guidelines the anterior tibial vein can not be effectively evaluated. Only compression techniques in the calf on the peroneal and posterior tibial veins was attempted/performed. FINDINGS: There is no abnormal echogenic material seen within any of the visualized deep venous structures that would suggest acute thrombosis. Coaptation is unremarkable throughout. Doppler interrogation shows an expected response to respiratory variability and augmentation in the thigh. Compression techniques in the calf showed no abnormality. The color flow images show what appears to be a normal vascular pattern throughout the thigh. IMPRESSION: There is no ultrasonographic evidence of deep venous thrombosis involving any of the visualized deep venous structures as described above. <Electronically signed by Tuan Wilcox > 02/04/212003
[2021-02-04] MEDS ORDERED: DOXY100C37 PO (20:19)
[2021-02-04] MEDS ORDERED: DOXYCYCLINE HYCLATE 100MG TABLET PO ONE (20:25)
[2021-02-04 21:00] VITALS: BP 156/88
== END 2021-02-04 21:01 | disposition home or self-care (01) ==
LOC: M ED 11:58
DX: L03.115 Cellulitis of right lower limb (principal); F03.90 Unspecified dementia, unspecified severity, without behavioral disturbance, psychotic disturbance, mood disturbance, and anxiety; J44.9 Chronic obstructive pulmonary disease, unspecified; I10 Essential (primary) hypertension; Z79.82 Long term (current) use of aspirin; Z79.899 Other long term (current) drug therapy; Z88.1 Allergy status to other antibiotic agents